=== PATIENT | female | born 1965 | race Caucasian/White ===

== ENCOUNTER 2017-01-05 21:22 | Observation (INO) | payer BC ==
--- NOTE | ~2017-01-05 | HP ---
History And Physical [address] [place]. [address] NAME: ESTELITA YOUNG : 61 STATUS : ADM Kiera PAT#: [id number] AGE: 51 ADM/REG DATE : 01/05/17 MR#: [id number] REPORT SERV DATE: 01/06/17 DICTATED BY: RISSA MORENO DATE: 01/06/17 REPORT STATUS : Draft TRANSCRIBED BY: MODNima DATE: 01/06/17 DATE OF ADMISSION: 01/05/2017 SCREENER OPERATOR: Carlos Alberto Delgado M.D., Ph.D, F.A.C.C. CHIEF COMPLAINT: Fatigue. HISTORY OF PRESENT ILLNESS: A very pleasant 51-year-old white female with known history of nonobstructive CAD, identified by cath in 2012 revealing a 20% ostial LAD lesion. The patient states that she has been fatigued and exhausted "out of gas" for several days. On 01/04/2017 around 1700 hours, she experienced some facial tingling, checked her blood pressure, was 210/80. She went to [facility], was given labetalol, Antivert, potassium supplement, and discharged with hydrochlorothiazide 25 mg daily. On 01/05/2017, she felt weak all day. Her heart was pounding. Denies any chest pain, pressure, or tightness. No shortness of breath, nausea, diaphoresis, dizziness, or belching. Her blood pressure yesterday was 120 to 200 systolic over 90. The patient denies any personal history of myocardial infarction, stroke, DVT, or pulmonary embolus. The patient recently treated for sinusitis three weeks ago. Denies palpitations. No syncopal episodes. Denies PND or orthopnea. PAST MEDICAL HISTORY: 1. Hypertension, recently started on hydrochlorothiazide. 2. Dyslipidemia. 3. Denies diabetes. 4. Nonobstructive CAD by cath in 2012 with 20% ostial LAD lesion. 5. Hypothyroidism, on replacement. 6. GERD. 7. Seizure disorder with no recurrence since 1997, followed by [facility]. 8. Factor V Leiden. 9. Positive family history for early CAD. 10.History of ablation by Sammy Melara at [facility] in 2004. PAST SURGICAL HISTORY: 1. Left ankle surgery. 2. Cyst removed from right index finger. 3. "Valve repair," right leg by Dr. Lo. 4. Hysterectomy. 5. . SOCIAL HISTORY: She is with two children. She is employed as a blood bank business manager. Does not have an exercise routine. Denies tobacco, alcohol, or illicits. FAMILY HISTORY: Father with CAD and CABG at 65, at 72. Sister with a history of cardiomyopathy and heart transplant in her 40s, at 54. History And Physical [address] [id number] NAME: ESTELITA YOUNG : 61 STATUS : ADM Kiera PAT#: [id number] AGE: 51 ADM/REG DATE : 01/05/17 MR#: [id number] REPORT SERV DATE: 01/06/17 DICTATED BY: RISSA MORENO DATE: 01/06/17 REPORT STATUS : Draft TRANSCRIBED BY: PINA DATE: 01/06/17 REVIEW OF SYSTEMS: A 14-point review of systems was performed, significant for HPI including home blood pressures of 147/80. Otherwise, complete review of systems was obtained and negative. ALLERGIES: ALLERGY TO PENICILLIN, HIVES. MEDICATIONS: Home medicines: Fioricet p.r.n., aspirin 81 mg nightly, Tegretol 400 mg twice daily, Nexium 40 mg daily, Minivelle patch 0.075 twice weekly, hydrochlorothiazide 25 mg daily, Motrin p.r.n., Aleve p.r.n., pravastatin 40 mg nightly, Wittmann Thyroid 75 mg daily, and vitamin B12 daily. PHYSICAL EXAMINATION: BLOOD PRESSURE: Bilateral blood pressures on arrival, right 184/82, left 176/81. This morning 135/79. PULSE: 62, RESPIRATORY RATE: 18, TEMPERATURE: 97.2, O2 saturation 99% on room air. HEIGHT: 5 feet 6 inches. WEIGHT: 174 pounds. BMI of 28. GENERAL: Cooperative, in no apparent distress. HEENT: Pupils 2 mm, sclera nonicteric. Nares patent. Moist mucous membranes. No xanthelasma. NECK: Trachea midline, no thyromegaly. No JVD. No bruits. LYMPH: No cervical lymphadenopathy. No supraclavicular lymphadenopathy. RESPIRATORY: Unlabored respirations. Breath sounds clear bilaterally to posterior auscultation. No wheezes or rhonchi. CARDIOVASCULAR: Regular rate. No murmur, rub or gallop appreciated. EXTREMITIES: Without edema. Pulses 2+ bilaterally. ABDOMEN: Soft, nontender, nondistended, normal bowel sounds auscultated throughout. No organomegaly. SKIN: Warm, dry extremities. No pallor, or cyanosis. PSYCHIATRIC: Appropriate affect. Alert, oriented x3. LABORATORY DATA: Troponin is less than 0.02 twice. Potassium 4.4 (previously 3.2), BUN 8, creatinine 0.8, glucose 92, and magnesium 1.9. WBC of 4.3, hemoglobin 13.2, hematocrit 36.9, and platelet count 215,000. EKG, sinus rhythm. Echo, 08/2016: EF of 60%. Mild TR and MR. Mildly dilated right atrium. MPI, 2013: Edgar stage 3, 8:58 minutes, [address] depression. No ischemia. Cath, 2013 ([facility]): 20% ostial LAD lesion, EF of 60%. ASSESSMENT AND PLAN: 1. Fatigue. The patient has been observed in the CPOU overnight to rule out myocardial infarction with serial enzymes and serial EKGs. Held n.p.o. We will proceed with MPI today. Check TSH and free T4 as well. The patient will be discharged home if negative stress test. If anything suggestive of ischemia, Cardiology referral will be initiated. Otherwise, the patient will be asked to follow up with her PCP and Dr. Delgado as appropriate. 2. Hypertension. Recently started on hydrochlorothiazide 25 mg daily. We will add low- History And Physical [address] [id number] NAME: ESTELITA YOUNG : 61 STATUS : ADM Kiera PAT#: [id number] AGE: 51 ADM/REG DATE : 01/05/17 MR#: [id number] REPORT SERV DATE: 01/06/17 DICTATED BY: RISSA MORENO DATE: 01/06/17 REPORT STATUS : Draft TRANSCRIBED BY: PINA DATE: 01/06/17 dose amlodipine at discharge if warranted with close PCP and Cardiology followup. 3. Dyslipidemia. Continue statin. 4. Nonobstructive coronary artery disease by cath in 2012. The patient reports recent weight loss of 16 pounds over six weeks with a Weight Watcher, recommended exercise program as well. CARMEN/PINA KIRK Salazar, MAILING CLERK-BC / [id number] CC: KIRK Salazar, MAILING CLERK-BC Rock Hernandez M.D. Carlos Alberto Delgado M.D., Ph.D, F.A.C.C.
[~2017-01-05 21:22] MED LIST: ARMOUR THYRO15 MG PO; NEXIUM40 PO; TEG200 PO; VITAMIN B-121000 MC1 SL; VIVELLE SY0.05 MG/24 TOP
[2017-01-05 22:08] LABS: BASOPHILS 0.5 %; BASOPHILS ABSOLUTE 0.02 10/3/uL (0.0-0.16); EOSINOPHILS 1.2 %; EOSINOPHILS ABSOLUTE 0.05 10/3/uL (0.0-0.53); ER CBC TAT 0 Hrs 08 Mins; HEMATOCRIT 36.9 % (36.0-48.0); HEMOGLOBIN 13.2 g/dL (12.0-16.0); LYMPHOCYTES 28.2 %; MEAN CORPUS HGB CONC 35.8 g/dL (32.0-36.0); MEAN CORPUSCULAR VOLUME 86.6 fL (80-100); MEAN PLATELET VOLUME 10.7 fL (9.2-13.0); MONOCYTES 8.5 %; MONOCYTES ABSOLUTE 0.36 10/3/uL (0.21-1.20); NEUTROPHILS 61.6 %; NEUTROPHILS ABSOLUTE 2.63 10/3/uL (2.02-8.40); PLATELET COUNT 215 10/3/uL (150-400); RBC DISTRIBUTION WIDTH 11.9 % (12.0-16.0); RED CELL COUNT 4.26 10/6/uL (4.0-5.6); WHITE BLOOD CELLS 4.3 10/3/uL (4.5-10.5)
[2017-01-05 22:09] LABS: MANUAL DIFF NO %
[2017-01-05 22:19] LABS: PARTIAL THROMBO TIME 25.6 SEC (22.5-37.2); PROTIME (NOT ORD) 12.9 SEC (12.0-14.5)
[2017-01-05 22:24] LABS: BUN (BLOOD UREA NITROGEN) 8 MG/DL (6-23); CHEST PAIN PROFILE TAT 0 Hrs 24 Mins; CHLORIDE, SERUM 93 MMOL/L (96-112); CO2 (CARBON DIOXIDE) 26 MMOL/L (24-34); GFR AFRICAN AMERICAN 98 ML/MIN (>=60); GFR NON AFRICAN AMERICAN 84 ML/MIN (>=60); GLUCOSE, SERUM 92 MG/DL (60-99); POTASSIUM, SERUM 3.2 MMOL/L (3.5-5.3); SODIUM, SERUM 132 MMOL/L (135-148); TROPONIN I <0.02 NG/ML (<0.05)
[2017-01-05] MEDS ORDERED: VITAMIN B12 OTC PO (23:10)
[2017-01-05] MEDS ORDERED: ARMOUR THYRO30 MG PO (23:10)
[2017-01-05] MEDS ORDERED: NEXIUM40 PO (23:11)
[2017-01-05] MEDS ORDERED: PRAVACHOL40 MG PO (23:11)
[2017-01-05] MEDS ORDERED: TEG200 PO (23:11)
[2017-01-05] MEDS ORDERED: HALF81 PO (23:11)
[2017-01-05] MEDS ORDERED: MINIVELLE1 EAC2 TOP (23:11)
[2017-01-05] MEDS ORDERED: FIORICET 50-301 EACH PO (23:12)
[2017-01-05] MEDS ORDERED: HYDROCHLOROT25 MG PO (23:12)
[2017-01-05] MEDS ORDERED: IBU800 PO (23:12)
[2017-01-05] MEDS ORDERED: ALEVE220 MG PO (23:12)
[2017-01-06 04:02] LABS: TROPONIN I <0.02 NG/ML (<0.05)
[2017-01-06 04:07] LABS: POTASSIUM, SERUM 4.4 MMOL/L (3.5-5.3)
[2017-01-06 11:12] LABS: FREE T4 0.58 NG/DL (0.76-1.46)
[2017-01-06] MEDS ORDERED: KDUR10 PO (13:43)
== END 2017-01-06 14:39 | disposition home or self-care (01) ==
LOC: ER 21:22 → CDU1 23:24
PROVIDERS: Clinical Nurse Specialist; Hospitalist
DX: R53.83 Other fatigue (principal); I10 Essential (primary) hypertension; E78.5 Hyperlipidemia, unspecified; I25.10 Atherosclerotic heart disease of native coronary artery without angina pectoris; E03.9 Hypothyroidism, unspecified; L50.0 Allergic urticaria; K21.9 Gastro-esophageal reflux disease without esophagitis; G40.909 Epilepsy, unspecified, not intractable, without status epilepticus; D68.51 Activated protein C resistance; Z90.710 Acquired absence of both cervix and uterus; Z98.890 Other specified postprocedural states; Z88.0 Allergy status to penicillin; Z79.899 Other long term (current) drug therapy
CPT/HCPCS: 71010; 78452; 80048; 83735; 84132; 84439; 84443; 84484; 85025; 85610; 85730; 93005; 93017; 96374; 99285; A9270-GY; A9502; G0378; J0360

== ENCOUNTER 2017-01-27 20:52 | Emergency (ER) | payer BC ==
[~2017-01-27 20:52] MED LIST changes: +ALEVE220 MG PO; +ARMOUR THYRO30 MG PO; +FIORICET 50-301 EACH PO; +HALF81 PO; +HYDROCHLOROT25 MG PO; +IBU800 PO; +KDUR10 PO; +MINIVELLE1 EAC2 TOP; +PRAVACHOL40 MG PO; +VITAMIN B12 OTC PO
[2017-01-27 22:53] LABS: BASOPHILS 0.4 %; BASOPHILS ABSOLUTE 0.02 10/3/uL (0.0-0.16); EOSINOPHILS ABSOLUTE 0.05 10/3/uL (0.0-0.53); ER CBC TAT 0 Hrs 08 Mins; HEMATOCRIT 37.3 % (36.0-48.0); HEMOGLOBIN 13.1 g/dL (12.0-16.0); IMMATURE GRANULOCYTES 0.2 %; IMMATURE GRANULOCYTES ABSOLUTE 0.01 10/3/uL (0.0-0.11); LYMPHOCYTES ABSOLUTE 1.99 10/3/uL (0.67-4.30); MEAN CORPUS HGB CONC 35.1 g/dL (32.0-36.0); MEAN CORPUSCULAR HEMOGLOB 30.5 pg (26.0-34.0); MEAN CORPUSCULAR VOLUME 86.9 fL (80-100); MEAN PLATELET VOLUME 10.4 fL (9.2-13.0); MONOCYTES 7.4 %; MONOCYTES ABSOLUTE 0.37 10/3/uL (0.21-1.20); NEUTROPHILS ABSOLUTE 2.53 10/3/uL (2.02-8.40); PLATELET COUNT 253 10/3/uL (150-400); RBC DISTRIBUTION WIDTH 12.1 % (12.0-16.0); RED CELL COUNT 4.29 10/6/uL (4.0-5.6)
[2017-01-27 22:54] LABS: MANUAL DIFF NO %
[2017-01-27 22:54] LABS: ASCORBIC ACID (UR NOT ORDER) NEG (NEG); BILIRUBIN, URINE NEGATIVE (NEG); ER URINALYSIS TAT 0 Hrs 09 Mins; KETONE, URINE TRACE MG/DL (NEG); LEUKOCYTE ESTERASE(NOT OR NEG (NEG); NITRITE (URINE) NEG (NEG); WBC (NOT ORDERED) (RFLEX) 1 (0-5)
[2017-01-27 23:13] LABS: A/G RATIO 0.9 (0.7-1.9); ALBUMIN 3.8 G/DL (3.5-5.0); ALKALINE PHOSPHATASE 126 U/L (45-117); BUN (BLOOD UREA NITROGEN) 5 MG/DL (6-23); CALCIUM, SERUM 9.2 MG/DL (8.5-10.4); CHLORIDE, SERUM 96 MMOL/L (96-112); CO2 (CARBON DIOXIDE) 29 MMOL/L (24-34); CREATININE 0.69 MG/DL (0.55-1.02); GFR AFRICAN AMERICAN 115 ML/MIN (>=60); GFR NON AFRICAN AMERICAN 99 ML/MIN (>=60); GLUCOSE, SERUM 97 MG/DL (60-99); POTASSIUM, SERUM 3.3 MMOL/L (3.5-5.3); SGOT(AST) 15 U/L (5-40); SGPT(ALT) 22 U/L (5-65); SODIUM, SERUM 133 MMOL/L (135-148); TOTAL BILIRUBIN 0.5 MG/DL (0-1.2)
[2017-01-27 23:14] LABS: GLOBULIN 4.2 G/DL (2.5-4.1)
[2017-01-28 00:04] LABS: TROPONIN I <0.02 NG/ML (<0.05)
== END 2017-01-28 03:09 | disposition home or self-care (01) ==
LOC: ER 20:52
PROVIDERS: Emergency Medicine
DX: R11.0 Nausea (principal); K59.00 Constipation, unspecified; K21.9 Gastro-esophageal reflux disease without esophagitis; I10 Essential (primary) hypertension; Z88.0 Allergy status to penicillin; Z79.899 Other long term (current) drug therapy; Z79.82 Long term (current) use of aspirin
CPT/HCPCS: 80053; 81001; 83690; 84484; 84703; 85025; 93005; 96374; 96375; 96376; 99284; A9270-GY; J0456; J1980; J2405; J2550

== ENCOUNTER 2017-02-20 06:45 | Emergency (ER) | payer BC ==
[2017-02-20 01:56] LABS: BASOPHILS 0.4 %; BASOPHILS ABSOLUTE 0.02 10/3/uL (0.0-0.16); EOSINOPHILS 0.4 %; EOSINOPHILS ABSOLUTE 0.02 10/3/uL (0.0-0.53); HEMATOCRIT 34.8 % (36.0-48.0); HEMOGLOBIN 12.5 g/dL (12.0-16.0); LYMPHOCYTES 25.9 %; LYMPHOCYTES ABSOLUTE 1.17 10/3/uL (0.67-4.30); MEAN CORPUS HGB CONC 35.9 g/dL (32.0-36.0); MEAN CORPUSCULAR HEMOGLOB 31.5 pg (26.0-34.0); MEAN CORPUSCULAR VOLUME 87.7 fL (80-100); MEAN PLATELET VOLUME 10.4 fL (9.2-13.0); MONOCYTES 8.9 %; NEUTROPHILS 64.4 %; PLATELET COUNT 213 10/3/uL (150-400); RBC DISTRIBUTION WIDTH 12.7 % (12.0-16.0); RED CELL COUNT 3.97 10/6/uL (4.0-5.6); WHITE BLOOD CELLS 4.5 10/3/uL (4.5-10.5)
[2017-02-20 01:57] LABS: MANUAL DIFF NO %
[2017-02-20 02:04] LABS: INTERNATIONAL NORMAL RATI 1.1 UNITS (-); PARTIAL THROMBO TIME 24.8 SEC (22.5-37.2)
[2017-02-20 02:19] LABS: BUN (BLOOD UREA NITROGEN) 8 MG/DL (6-23); CALCIUM, SERUM 8.7 MG/DL (8.5-10.4); CHEST PAIN PROFILE TAT 0 Hrs 29 Mins; CHLORIDE, SERUM 104 MMOL/L (96-112); CREATININE 0.67 MG/DL (0.55-1.02); GFR AFRICAN AMERICAN 116 ML/MIN (>=60); GFR NON AFRICAN AMERICAN 100 ML/MIN (>=60); GLUCOSE, SERUM 95 MG/DL (60-99); POTASSIUM, SERUM 3.1 MMOL/L (3.5-5.3); SODIUM, SERUM 137 MMOL/L (135-148); TROPONIN I <0.02 NG/ML (<0.05)
[2017-02-20 02:22] LABS: CO2 (CARBON DIOXIDE) 24 MMOL/L (24-34)
[2017-02-20 02:43] LABS: ALBUMIN 3.7 G/DL (3.5-5.0); DIRECT BILIRUBIN 0.1 MG/DL (0.0-0.4); INDIRECT BILIRUBIN(NOT ORDER) 0.3 MG/DL (0.1-0.9); SGOT(AST) 15 U/L (5-40); SGPT(ALT) 24 U/L (5-65); TOTAL BILIRUBIN 0.4 MG/DL (0-1.2); TOTAL PROTEIN 7.2 G/DL (6.0-8.5)
[2017-02-20 02:44] LABS: ALKALINE PHOSPHATASE 110 U/L (45-117)
== END 2017-02-20 07:00 | disposition home or self-care (01) ==
LOC: ER 06:45
PROVIDERS: Specialist
DX: E87.6 Hypokalemia (principal); I10 Essential (primary) hypertension; F41.9 Anxiety disorder, unspecified; Z88.0 Allergy status to penicillin; Z79.82 Long term (current) use of aspirin; Z79.899 Other long term (current) drug therapy
CPT/HCPCS: 80048; 80076; 83735; 84484; 85025; 85610; 85730; 93005; 96374; 99284; A9270-GY; J2405